=== PATIENT | female | born 1985 | race African-American/Black ===

== ENCOUNTER 2019-11-25 01:31 | Emergency (ER) | payer OTHER ==
[2019-11-25 02:01] VITALS: BP 129/98; PULSE 93; TEMP 98.7; BMI 49.6
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
[2019-11-25] MEDS ORDERED: ACETAMINOPHEN 325 MG TABLET (FP) PO ONE (03:39)
[2019-11-25] MEDS ORDERED: ACETAMINOPHEN 325 MG TABLET (FP) ONE (03:40)
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
[2019-11-25] MEDS ORDERED: KETOROLAC TROMETHAMINE 60 MG/2 ML VIAL IM ONE (04:43)
[2019-11-25] MEDS ORDERED: KETOROLAC TROMETHAMINE 60 MG/2 ML VIAL ONE (04:55)
--- NOTE | 2019-11-25 09:27 | EKG ---
Test Reason : Blood Pressure : / mmHG Vent. Rate : 078 BPM Atrial Rate : 078 BPM P-R Int : 184 ms QRS Dur : 086 ms QT Int : 386 ms P-R-T Axes : 065 015 033 degrees QTc Int : 440 ms NORMAL SINUS RHYTHM NORMAL ECG NO PREVIOUS ECGS AVAILABLE Confirmed by Anne Hong ([id number]) on 11/25/2019 9:27:00 AM Referred By: Confirmed By:Anne Hong
== END 2019-11-25 05:29 | disposition home or self-care (01) ==
LOC: JER 01:31
PROC: 3E0233Z Introduction of Anti-inflammatory into Muscle, Percutaneous Approach (ICD-10-PCS; principal; 2019-11-25)
DX: Z04.1 Encounter for examination and observation following transport accident (principal); R07.89 Other chest pain; V49.49XA Driver injured in collision with other motor vehicles in traffic accident, initial encounter; Y92.488 Other paved roadways as the place of occurrence of the external cause; Y93.89 Activity, other specified; Y99.8 Other external cause status
CPT/HCPCS: 36415; 71046-TC-FY; 82550; 84484; 93005; 93010; 99285-25

== ENCOUNTER 2022-10-30 08:55 | Emergency (ER) | payer OTHER ==
[2022-10-30 08:59] VITALS: BP 140/83; PULSE 81; RESP 18; TEMP 99; BMI 51.2
[2022-10-30] MEDS ORDERED: IBUPROFEN 600 MG TABLET (FP) PO ONE ×2 (09:21→09:26)
== END 2022-10-30 09:51 | disposition home or self-care (01) ==
LOC: JER 08:55
DX: J02.9 Acute pharyngitis, unspecified (principal)
CPT/HCPCS: 99283-25